=== PATIENT | female | born 1950 | race American Indian/Alaskan Native ===

== ENCOUNTER 2016-06-30 09:58 | Outpatient (CLI) | payer MEDICARE, OTHER ==
--- NOTE | 2016-07-01 11:14 | Nuclear Medicine Report ---
NUCLEAR MEDICINE TRIPLE PHASE BONE SCAN History: Bilateral hip pain, left greater than right. Bilateral hip replacements in February 2016. Technique: Perfusion, blood pool and delayed imaging was obtained through the pelvis. Whole body delayed images were also obtained. 25 mCi of technetium 99m MDP was administered. Findings: Compared to the intraoperative left hip films performed 02/22/16. The perfusion images and blood pool images demonstrate symmetric and homogeneous distribution of the radiotracer throughout the pelvis and proximal femurs. The delayed images demonstrate photopenic defects in both hips consistent with bilateral hip replacements. There is subtle increased uptake surrounding the femoral component in the left hip compared to the right. Impression: There is subtle increased uptake surrounding the femoral component of the left hip prosthesis compared to the right side. This could be within normal limits given history of recent left hip replacement. I suppose mild loosening could be considered. No findings to suggest infection. The uptake in the right hip appears normal.
== END 2016-06-30 09:59 | disposition home or self-care (01) ==
LOC: NM 09:58
DX: T84.84XA Pain due to internal orthopedic prosthetic devices, implants and grafts, initial encounter (principal)
CPT/HCPCS: 78315; A9503

== ENCOUNTER 2017-02-23 10:38 | Outpatient (CLI) | payer MEDICARE, OTHER ==
--- NOTE | 2017-02-23 13:51 | Ultrasound Report ---
ULTRASOUND EXTREMITY NONVASCULAR LEFT History: Strain of left hip and thigh, swelling. Findings: Targeted grayscale ultrasound was performed from the right hip to the right knee at the site of swelling. There is nonspecific subcutaneous edema in this area. No evidence for fluid collection or mass. Impression: Nonspecific subcutaneous edema.
== END 2017-02-23 10:39 | disposition home or self-care (01) ==
LOC: US 10:38
DX: S76.012A Strain of muscle, fascia and tendon of left hip, initial encounter (principal); R60.0 Localized edema; X58.XXXA Exposure to other specified factors, initial encounter; Y93.89 Activity, other specified; Y92.89 Other specified places as the place of occurrence of the external cause; Y99.8 Other external cause status